=== PATIENT | male | born 1965 | race African-American/Black ===

== ENCOUNTER → 2016-11-13 | Outpatient (REF) ==
[~2016-11-13] MED LIST: DIABETA 5MG5 MG/TAB PO; HYZAAR 25 MG-101 TAB PO; JANUVIA 100MG100 MG PO; LIPITOR 10MG10 MG PO; NORCO 325 MG-51 TAB PO; TRESIBA FL200 UNIT/1 SQ
== END ==
LOC: WSOH 08:39
DX: Z02.89 Encounter for other administrative examinations (principal)

== ENCOUNTER 2016-11-26 05:37 | Day surgery (SDC) | payer BC ==
[2016-11-26] VITALS (7 sets, daily range): BP systolic 109–155; BP diastolic 61–87; PULSE 68–90; TEMP 98.1–98.4
[~2016-11-26] VITALS: Ht 177.8 cm; Wt 123.5 kg
[2016-11-26] MEDS ORDERED: HYZAAR 25 MG-101 TAB PO (06:33)
[2016-11-26] MEDS ORDERED: DIABETA 5MG5 MG/TAB PO (06:33)
[2016-11-26] MEDS ORDERED: LIPITOR 10MG10 MG PO (06:34)
[2016-11-26] MEDS ORDERED: JANUVIA 100MG100 MG PO (06:35)
[2016-11-26] MEDS ORDERED: TRESIBA FL200 UNIT/1 SQ (06:36)
[2016-11-26] MEDS ORDERED: NORCO 325 MG-51 TAB PO (10:25)
== END 2016-11-26 12:30 | disposition home or self-care (01) ==
LOC: SDCO 05:37
DX: K43.6 Other and unspecified ventral hernia with obstruction, without gangrene (principal); K42.9 Umbilical hernia without obstruction or gangrene; E11.9 Type 2 diabetes mellitus without complications; Z79.84 Long term (current) use of oral hypoglycemic drugs; I10 Essential (primary) hypertension; E78.00 Pure hypercholesterolemia, unspecified; G47.33 Obstructive sleep apnea (adult) (pediatric)
CPT/HCPCS: C1781; J0360; J0690; J1100; J1170; J1815; J1885; J2405; J2704; J2710; J7030

== ENCOUNTER → 2018-07-12 | Outpatient (CLI) | payer OTHER | LOC: COL.RAD 08:15 | DX: E04.2 Nontoxic multinodular goiter (principal) ==

== ENCOUNTER → 2020-12-26 | Outpatient (CLI) | payer BC | LOC: COL.RAD 06:54 | DX: Z00.00 Encounter for general adult medical examination without abnormal findings (principal) ==

== ENCOUNTER → 2020-12-27 | Outpatient (CLI) | payer BC | LOC: COL.VAS | DX: R94.31 Abnormal electrocardiogram [ECG] [EKG] (principal) ==